=== PATIENT | male | born 1990 | race Two or more races ===

== ENCOUNTER 2019-06-09 07:37 | Emergency (ER) | payer OTHER ==
[~2019-06-09] VITALS: Ht 170.2 cm; Wt 62.6 kg
[2019-06-09 07:43] VITALS: BP 123/60
[2019-06-09] MEDS ORDERED: TDAP [DIPH/PERTUSSIS/TET] 0.5 ML VIAL IM ONE ×2 (07:51→08:00)
--- NOTE | 2019-06-09 07:59 | NUR ---
Patient discharged in custody [employer] Stefania [id number] and Dat [id number] in stable condition. Written and verbal after care instructions given. Patient verbalizes understanding of instruction.
== END 2019-06-09 08:00 ==
LOC: ER 07:42
DX: S01.81XA Laceration without foreign body of other part of head, initial encounter (principal); X58.XXXA Exposure to other specified factors, initial encounter; Y92.89 Other specified places as the place of occurrence of the external cause
CPT/HCPCS: 99283; 90471; 90715; A6403

== ENCOUNTER 2019-06-09 08:34 | Emergency (ER) | payer OTHER ==
[~2019-06-09] VITALS: Ht 170.2 cm; Wt 62.6 kg
[2019-06-09 08:35] VITALS: BP 122/71
== END 2019-06-09 08:38 ==
LOC: ER 08:34
DX: S09.90XA Unspecified injury of head, initial encounter (principal); W22.8XXA Striking against or struck by other objects, initial encounter; Y92.89 Other specified places as the place of occurrence of the external cause; Y99.8 Other external cause status; R40.2412 Glasgow coma scale score 13-15, at arrival to emergency department; S01.81XD Laceration without foreign body of other part of head, subsequent encounter; X58.XXXD Exposure to other specified factors, subsequent encounter